=== PATIENT | male | born 1970 | race Caucasian/White ===

== ENCOUNTER → 2017-05-17 | Outpatient (CLI) | payer MEDICARE, OTHER ==
[2017-05-17 16:40] LABS: HEMOGLOBIN A1C 5.3 % (4.5-6.2)
[2017-05-17 16:46] LABS: LITHIUM < 0.20 mmol/L (0.60-1.20)
[2017-05-17 16:50] LABS: CHOL/HDL RATIO 3.8 (4.2-7.3); CHOLESTEROL 190 mg/dL (131-200); CREATININE 0.77 mg/dL (0.60-1.30); FREE T4 (FREE THYROXINE) 0.83 ng/dL (0.76-1.46); GLOMERULAR FILTR. RATE CALC > 60 mL/min (>60); GLUCOSE,FASTING 91 mg/dL (70-110); HDL CHOLESTEROL 50 mg/dL (40-60); LDL CHOL (CALC.) 111 mg/dL (0-130); THYROID STIMULATING HORMONE 3.82 uIU/mL (0.36-3.74); TRIGLYCERIDES 146 mg/dL (15-150)
== END | disposition home or self-care (01) ==
LOC: LABMN 10:30
PROVIDERS: ATTEND Psychiatry & Neurology Psychiatry
DX: F20.9 Schizophrenia, unspecified (principal); R79.89 Other specified abnormal findings of blood chemistry; Z79.899 Other long term (current) drug therapy
CPT/HCPCS: 82565; 82947; 83036; 84439; 84443

== ENCOUNTER → 2022-06-18 | Outpatient (CLI) | payer MEDICARE, OTHER ==
[2022-06-18 17:42] LABS: HEMOGLOBIN A1C 5.3 % (3.8-5.6)
[2022-06-18 18:06] LABS: CHOL/HDL RATIO 3.5 (4.2-7.3)
== END | disposition home or self-care (01) ==
LOC: LABMN 14:19
PROVIDERS: ATTEND Psychiatry & Neurology Psychiatry
DX: F25.1 Schizoaffective disorder, depressive type (principal); Z79.899 Other long term (current) drug therapy
CPT/HCPCS: 80061; 82947; 83036